=== PATIENT | female | born 1990 | race Caucasian/White ===

== ENCOUNTER 2017-03-31 11:43 | Emergency (ER) | payer BC ==
[2017-03-31 12:30] VITALS: BP 122/60
--- NOTE | 2017-03-31 12:55 | UC ---
Throat Pain/Nasal Raoul HPI - HPI Summary HPI Summary: 26 female presents to with complaints of sore throat that has been ongoing since she was diagnosed with strep 6 days ago. Did have positive culture. Patient just finished z pack yesterday however still feels her throat is sore. Patient has had strep many times, sometimes needs additional dosing of antibiotic. Patient denies fever, chills or any other complaints at this time. No other complaints. No PMHx. Took ibuprofen just [employer] to help with pain of sore throat. Does admit to symptoms improving mostly. Has never had mono in the past. - History of Current Complaint Chief Complaint: UCGeneralIllness Stated Complaint: THROAT COMPLAINT Time Seen by Provider: 03/31/17 12:32 Hx Obtained From: Patient Hx Last Menstrual Period: MIRENA IUD Onset/Duration: Sudden Onset, Lasting Days, Still Present Severity: Mild Pain Intensity: 5 Pain Scale Used: 0-10 Numeric Cough: None - Allergies/Home Medications Allergies/Adverse Reactions: Allergies Allergy/AdvReac Type Severity Reaction Status Date / Time No Known Allergies Allergy Verified 03/31/17 12:24 PMH/Surg Hx/FS Hx/Imm Hx - Additional Past Medical History Additional PMH: Denies DM, HTN and asthma - Surgical History Surgical History: None - Family History Known Family History: Positive: None - Social History Alcohol Use: None Substance Use Type: None Smoking Status (MU): Never Smoked Tobacco - Immunization History Most Recent Influenza Vaccination: no 2017 Vaccination Up to Date: Yes Review of Systems Constitutional: Negative ENT: Sore Throat Respiratory: Negative Cardiovascular: Negative Musculoskeletal: Negative Neurological: Negative All Other Systems Reviewed And Are Negative: Yes Physical Exam Triage Information Reviewed: Yes Appearance: Well-Appearing, No Pain Distress, Well-Nourished Vital Signs: Initial Vital Signs Temp 98.3 F 03/31/17 12:25 Pulse 85 03/31/17 12:25 Resp 18 03/31/17 12:25 BP 122/60 03/31/17 12:25 Pulse Ox 100 03/31/17 12:25 Vital Signs Reviewed: Yes Eyes: Positive: Conjunctiva Clear ENT: Positive: Hearing grossly normal, TMs normal, Tonsillar swelling, Tonsillar exudate, Uvula midline, Other - no sign of peritonsillar abscess, airway patent. Negative: Pharyngeal erythema, Nasal congestion, Nasal drainage , Trismus, Muffled voice Dental: Negative: Cervical Lymphadenopathy Neck: Positive: Supple, Nontender, No Lymphadenopathy Respiratory: Positive: Chest non-tender, Lungs clear, Normal breath sounds, No respiratory distress, No accessory muscle use Cardiovascular: Positive: RRR, No Murmur, Pulses Normal Musculoskeletal: Positive: Strength Intact Neurological Exam: Normal Skin Exam: Normal Throat Pain/Nasal Course/Dx - Course Course Of Treatment: did not repeat culture as patient was alreadt tested positive for strep. will give additional 3 more days of azithromycin as patient has needed additional antibiotic doses in the past for strep infections. Appears to have resolved greatly and not significantly erythematous or strep appearing. Aware of worsening signs and symptoms to watch out for. Follow up with PCP. Continue ibuprofen as needed. Recommended chloraseptic spray and salt water gargles. - Differential Dx/Diagnosis Differential Diagnosis/HQI/PQRI: Mononucleosis, Pharyngitis, URI Provider Diagnoses: strep pharyngitis Discharge - Discharge Plan Condition: Stable Disposition: HOME Prescriptions: Azithromycin TAB* [Zithromax TAB (Z-RANJIT) 250 mg #6 tabs] 250 mg PO DAILY #3 tab Patient Education Materials: Strep Throat (ED) Referrals: No Primary Care Phys,NOPCP [Primary Care Provider] - [facility] [Outside] Additional Instructions: Take remaining three doses of antibiotic. Recommend chloraseptic spray, continue ibuprofen if helps with discomfort and inflammation. Increase fluid intake and get plenty of rest. Salt water gargles multiple times daily while symptoms persist. Follow up with PCP. Any new or worsening symptoms or does not improve please seek medical attention promptly.
== END 2017-03-31 13:01 | disposition home or self-care (01) ==
LOC: UCCORT 11:43
DX: J02.0 Streptococcal pharyngitis (principal)
CPT/HCPCS: 99202; G0463

== ENCOUNTER 2018-10-03 10:40 | Emergency (ER) | payer BC ==
[2018-10-03 11:14] VITALS: BP 137/89
[2018-10-03] MEDS ORDERED: Penicillin G Benzathine 1.2MU* 1,200,000 UNITS/2 ML SYR IM ONE (11:41)
[2018-10-03] MEDS ORDERED: Ondansetron ODT TAB* 4 MG PO ONE (11:42)
--- NOTE | 2018-10-03 11:46 | UC ---
Throat Pain/Nasal Raoul HPI - HPI Summary HPI Summary: 28 yo female awoke about 4 AM with fever, sore throat, n/v x 2 and diarrhea x 2 no abd pain no UTI symptoms - History of Current Complaint Chief Complaint: UCRespiratory Stated Complaint: ST,VOMITING Time Seen by Provider: 10/03/18 11:36 Hx Obtained From: Patient Hx Last Menstrual Period: 09/08/18 Onset/Duration: Gradual Onset, Lasting Hours Severity: Moderate Pain Intensity: 7 Pain Scale Used: 0-10 Numeric Cough: None Associated Signs & Symptoms: Positive: Fever, Vomiting, Other - diarrhea - Epiglottits Risk Factors Epiglottis Risk Factors: Negative - Allergies/Home Medications Allergies/Adverse Reactions: Allergies Allergy/AdvReac Type Severity Reaction Status Date / Time No Known Allergies Allergy Verified 10/03/18 11:11 PMH/Surg Hx/FS Hx/Imm Hx Previously Healthy: Yes - Surgical History Surgical History: None - Family History Known Family History: Positive: Hypertension - Social History Alcohol Use: Occasionally Substance Use Type: None Smoking Status (MU): Never Smoked Tobacco - Immunization History Most Recent Influenza Vaccination: no 2017 Vaccination Up to Date: Yes Review of Systems All Other Systems Reviewed And Are Negative: Yes Constitutional: Positive: Fever, Chills Skin: Positive: Negative Eyes: Positive: Negative ENT: Positive: Sore Throat Respiratory: Positive: Negative Cardiovascular: Positive: Negative Gastrointestinal: Positive: Vomiting, Diarrhea, Nausea Genitourinary: Positive: Negative Motor: Positive: Negative Neurovascular: Positive: Negative Musculoskeletal: Positive: Negative Psychological: Positive: Negative Physical Exam Triage Information Reviewed: Yes Appearance: Well-Appearing, No Pain Distress, Well-Nourished Vital Signs: Initial Vital Signs Temp 101 F 10/03/18 11:11 Pulse 110 10/03/18 11:11 Resp 20 10/03/18 11:11 BP 137/89 10/03/18 11:11 Pulse Ox 99 10/03/18 11:11 Vital Signs Reviewed: Yes Eyes: Positive: Conjunctiva Clear ENT: Positive: Hearing grossly normal, Pharyngeal erythema, TMs normal, Tonsillar swelling, Tonsillar exudate, Uvula midline. Negative: Nasal congestion, Nasal drainage, Trismus, Muffled voice, Hoarse voice, Sinus tenderness Dental Exam: Normal Neck: Positive: Supple, Nontender, Enlarged Nodes @ - ant cerv Respiratory: Positive: Lungs clear, Normal breath sounds, No respiratory distress, No accessory muscle use Cardiovascular: Positive: RRR, No Murmur, Tachycardia Abdomen Description: Positive: Nontender, No Organomegaly Musculoskeletal: Positive: ROM Intact, No Edema Neurological: Positive: Alert Psychological Exam: Normal Skin Exam: Normal Throat Pain/Nasal Course/Dx - Course Course Of Treatment: strep (+) - Differential Dx/Diagnosis Provider Diagnosis: Strep pharyngitis, Vomiting and diarrhea Discharge - Sign-Out/Discharge Documenting (check all that apply): Patient Departure All imaging exams completed and their final reports reviewed: No Studies - Discharge Plan Condition: Stable Disposition: HOME Prescriptions: Ondansetron TAB* [Zofran Tab*] 4 mg PO Q6H PRN #10 tab PRN Reason: Nausea Patient Education Materials: Strep Throat (ED), Acute Nausea and Vomiting (ED) , Acute Diarrhea (ED) Additional Instructions: imodium AD for diarrhea recheck in 2 days if not better - Billing Disposition and Condition Condition: STABLE Disposition: Home
[2018-10-03 13:14] LABS: Influenza A Molecular NEGATIVE (Negative); Influenza B Molecular NEGATIVE (Negative)
== END 2018-10-03 12:31 | disposition home or self-care (01) ==
LOC: UCCORT 10:40
DX: J02.0 Streptococcal pharyngitis (principal); B95.0 Streptococcus, group A, as the cause of diseases classified elsewhere; R11.10 Vomiting, unspecified; R19.7 Diarrhea, unspecified
CPT/HCPCS: 87651; 96372; 99212; A9270-GY; G0463; J0558